=== PATIENT | male | born 1975 | race Hispanic/Latino ===

== ENCOUNTER 2018-02-09 13:12 | Inpatient (IN) | payer OTHER, SELFPAY ==
[~2018-02-09 13:12] MED LIST: Dexamethasone 20 MG/5 ML VIAL ONE; Glycopyrrolate 0.2 MG/ML 5 ML SYRINGE ONE; Lidocaine 1% PF 5 ML VIAL ONE; Ondansetron HCl/PF 4 MG/2 ML Vial ONE; PROPOFOL 200 MG/20 ML VIAL ONE
--- NOTE | 2018-02-09 14:29 | RAD ---
RIGHT HAND 3 VIEWS: HISTORY: Hand injury. COMPARISON: None. FINDINGS: There is a tiny fracture of the thumb metacarpal with punctate radiopaque debris. There is a subsegm ental-type fracture. IMPRESSION: Mildly comminuted likely extraarticular fracture of the thumb metacarpal diaphysis. POS: [facility]
[2018-02-09 15:11] LABS: #Basophils 0.1 thou/uL (0.0-0.2); #Eosinphils 0.2 thou/uL (0.0-0.7); #Lymphocytes 1.4 thou/uL (1.20-3.40); #Monocytes 0.6 thou/uL (0.11-0.59); #Neutrophils 8.4 thou/uL (1.40-6.50); %Basophils 0.6 % (0.0-1.0); %Eosinophils 1.4 % (0.0-10.0); %Monocytes 5.8 % (0.0-10.0); %Neutrophils 79.2 % (42.0-75.0); Hemoglobin 15.2 g/dL (14.0-18.0); Mean Corpuscular HGB CONC 34.5 g/dL (32.0-36.0); Mean Platelet Volume 8.9 fL (7.4-10.4); Platelet Count 160 thou/uL (130-400); RBC Distribution Width 11.7 % (11.5-14.5); Red Blood Cell (RBC) Count 4.91 mill/uL (4.70-6.10); White Blood Cell (WBC) Count 10.6 thou/uL (4.8-10.8)
[2018-02-09] MEDS ORDERED: CEFAZOLIN 1 GM VIAL ONE (15:17)
[2018-02-09] MEDS ORDERED: Penicillin G Potassium 3 MILL.UNITS in Sodium Chloride 0.9% 100 ML IVPB ONE (15:30)
[2018-02-09 15:33] LABS: ALT (SGPT) 23 U/L (8-55); AST (SGOT) 23 U/L (5-34); Albumin 4.6 g/dL (3.5-5.0); Alkaline Phosphatase 118 U/L (40-150); Anion Gap 12 mmol/L (10-20); BUN (Urea Nitrogen) 15 mg/dL (8.9-20.6); Bilirubin, Total 0.6 mg/dL (0.2-1.2); Calc. Creatinine Clearance 0 mL/min (70-130); Calcium 9.6 mg/dL (7.8-10.44); Carbon Dioxide 25 mmol/L (22-29); Chloride 108 mmol/L (98-107); Estimated GFR-MDRD Greater than 90; Globulin 3.3 g/dL (2.4-3.5); Glucose 102 mg/dL (70-105); Potassium 4.1 mmol/L (3.5-5.1); Protein, Total 7.9 g/dL (6.0-8.3); Sodium 141 mmol/L (136-145)
[2018-02-09] MEDS ORDERED: Fentanyl 250 MCG/5 ML VIAL ONE (17:22)
[2018-02-09] MEDS ORDERED: Midazolam HCl 2 mg/2 ml Vial ONE (17:22)
[2018-02-09] MEDS ORDERED: Bupivacaine PF 0.5% 30 ML VIAL ONE (17:39)
[2018-02-09] MEDS ORDERED: Lidocaine 2% 10 ML INJ ONE (17:39)
[2018-02-09] MEDS ORDERED: Hetastarch 6% 500 ML 0 ML ONE (17:39)
[2018-02-09] MEDS ORDERED: Betamet Acet/Betamet Na Ph 30 MG/5 ML VIAL ONE (17:39)
[2018-02-09] MEDS ORDERED: Bacitracin Zinc Ointment 30 gm TUBE ONE ×3 (17:39→21:59)
[2018-02-09] MEDS ORDERED: Sodium Chloride 0.9% 30 ML ONE (17:40)
[2018-02-09] MEDS ORDERED: Promethazine HCl 25 MG/ML VIAL IM PRN ×2 (21:16→21:33)
[2018-02-09] MEDS ORDERED: Promethazine HCl 25 MG/ML VIAL SLOW IVP PRN (21:16)
[2018-02-09] MEDS ORDERED: Ondansetron HCl/PF 4 MG/2 ML Vial IVP PRN (21:16)
[2018-02-09] MEDS ORDERED: Acetaminophen 325 MG TAB PO PRN (21:33)
[2018-02-09] MEDS ORDERED: traMADol HCl 50 MG TAB PO PRN (21:33)
[2018-02-09] MEDS ORDERED: Ondansetron HCl/PF 4 MG/2 ML Vial IV PRN (21:33)
[2018-02-09] MEDS ORDERED: Morphine 4 MG/ML VIAL SLOW IVP PRN (21:33)
[2018-02-09] MEDS ORDERED: HYDROcodone/Acetaminophen 5/325 mg Tablet PO PRN (21:33)
[2018-02-09] MEDS ORDERED: Meperidine HCl/PF 25 MG/ML VIAL IM PRN (21:38)
[2018-02-09] MEDS ORDERED: Communication Order-Pharmacy FS SCH (21:45)
[2018-02-09] MEDS ORDERED: TETANUS AND DIPHTHERIA TOX/PF 0.5 ML DISP.SYRIN IM SCH (21:45)
--- NOTE | 2018-02-09 22:44 | RAD ---
INTRAOPERATIVE FLUOROSCOPY: HISTORY: Right thumb ORIF. FINDINGS: Four fluoroscopic images demonstrate internal fixation screws projecting over the first metacarpal. Alignment appears to be near anatomic. EXPOSURE: 68.8 seconds 1.46 mGy IMPRESSION: Fluoroscopy as above. POS: [facility]
[2018-02-09] MEDS ORDERED: Adacel (T-DAP) 0.5 ML VIAL IM ONE (23:00)
[2018-02-09] MEDS: Ketorolac Tromethamine 30 MG/ML VIAL IVP SCH (23:16)
[2018-02-09 23:42] VITALS: BMI 28.7
[2018-02-10] MEDS ORDERED: Vancomycin HCl 1 GM in Premix Bag 1 BAG IVPB SCH (00:01)
[2018-02-10] MEDS: Vancomycin HCl 1.25 GM in Sodium Chloride 0.9% 250 ML 250 ML IVPB SCH ×2 (00:52→13:50)
[2018-02-10] MEDS: Ketorolac Tromethamine 30 MG/ML VIAL IVP SCH ×3 (05:34→18:51)
[2018-02-10] MEDS: Aspirin 81 mg Enteric Coated Tablet PO SCH ×2 (09:09→21:16)
[2018-02-10 21:06] LABS: #Eosinphils 0.2 thou/uL (0.0-0.7); #Lymphocytes 2.7 thou/uL (1.20-3.40); #Monocytes 0.8 thou/uL (0.11-0.59); #Neutrophils 5.8 thou/uL (1.40-6.50); %Basophils 0.4 % (0.0-1.0); %Eosinophils 1.6 % (0.0-10.0); %Lymphocytes 28.6 % (21.0-51.0); %Monocytes 8.7 % (0.0-10.0); %Neutrophils 60.7 % (42.0-75.0); Hemoglobin 12.5 g/dL (14.0-18.0); Mean Corpuscular HGB CONC 34.6 g/dL (32.0-36.0); Mean Corpuscular Hemoglobin 31.7 pg (27.0-31.0); Mean Corpuscular Volume 91.7 fL (78.0-98.0); Mean Platelet Volume 9.1 fL (7.4-10.4); Platelet Count 133 thou/uL (130-400); RBC Distribution Width 11.9 % (11.5-14.5); Red Blood Cell (RBC) Count 3.93 mill/uL (4.70-6.10); White Blood Cell (WBC) Count 9.5 thou/uL (4.8-10.8)
--- NOTE | 2018-02-10 21:19 | RAD ---
CHEST TWO VIEWS: 02/10/18 HISTORY: Pain. COMPARISON: None. FINDINGS: Normal cardiac silhouette. Pulmonary vessels and pulmonary hilum are normal. Costophrenic angles are clear. There is a wedge shaped opacity obscuring the right heart border, likely due to a middle lobe infiltrate. No pneumothorax or osseous abnormalities. IMPRESSION: Middle lobe infiltrate. Continued surveillance to ensure resolution is recommended. POS: [facility]
--- NOTE | 2018-02-10 21:20 | RAD ---
THORACIC SPINE THREE VIEWS: 02/10/18 HISTORY: Pain. COMPARISON: None. FINDINGS: Limited evaluation of the upper thoracic spine on the lateral projection. Based on the images provide d, thoracic spine vertebral body height is maintained. No fracture or malalignment. IMPRESSION: Unremarkable three views thoracic spine. POS: [facility]
--- NOTE | 2018-02-10 21:21 | RAD ---
LUMBAR SPINE THREE VIEWS: 02/10/18 HISTORY: Pain. COMPARISON: None. FINDINGS: Five lumbar type vertebral bodies. Vertebral body height is maintained. No fracture. Disc spaces heig hts are preserved. No spondylolisthesis or spondylolysis. IMPRESSION: Unremarkable lumbar spine radiograph series. POS: [facility]
[2018-02-11] MEDS: Vancomycin HCl 1.25 GM in Sodium Chloride 0.9% 250 ML 250 ML IVPB SCH ×2 (00:12→12:13)
[2018-02-11] MEDS ORDERED: Clopidogrel Bisulfate 75 MG TAB ONE (00:31)
[2018-02-11] MEDS: Ketorolac Tromethamine 30 MG/ML VIAL IVP SCH ×4 (00:48→16:26)
--- NOTE | 2018-02-11 08:54 | OP ---
DATE OF PROCEDURE: 02/09/2018 POSTOPERATIVE DIAGNOSES: 1. Right thumb grade 3 open fracture metacarpal. 2. Extensor pollicis longus laceration. 3. Pollicis brevus laceration. 4. An 8.0 cm wound. 5. At the right small finger 2.0 cm wound. FINDINGS/POSTOPERATIVE DIAGNOSES: 1. Right thumb grade 3 open fracture metacarpal. 2. Extensor pollicis longus laceration. 3. Pollicis brevus laceration. 4. An 8.0 cm wound. 5. At the right small finger 2.0 cm wound. 6. Superficial radial nerve, primary three branches intact over the thumb with marked soft tissue da mage, bone loss of approximately 1-2 mm where the saw made its primary contact and extensor pollicis brevis and longus laceration in zone 2, , no evidence of gross bony contamination, only minimal soft tissue contamination at the thumb and the small finger. 7. At the right small finger, the ulnar laceration had an intact ulnar digital nerve and excellent c irculation. PROCEDURE PERFORMED: Right small finger: 1. Debridement of 3 cm wound, intermediate depth. 2. Ulnar nerve neuroplasty under magnification. 3. Closure 3.0 cm wound. Right thumb: 1. Superficial radial nerve neuroplasty under magnification. 2. Extensor pollicis brevis repair. 3. Extensor pollicis longus repair. 4. Wound debridement down to and including the bone. 5. Debridement of material associated with open fracture, right thumb metacarpal. 6. Open reduction internal fixation of thumb metacarpal fracture. 7. Wound closure 8 cm complex. 10. Application of the thumb spica splint. 11. C-arm supervision, less than 1 hour. ESTIMATED BLOOD LOSS: 20 mL TOURNIQUET TIME: 6 minutes. INDICATION: The patient with a saw to the wound in work environment working with wood, not metal, an d he was brought to the operating room within 8 hours for procedure. ANESTHESIA: General LMA technique augmented by 30 mL 0.5% Marcaine, 20 given in the thumb 10 to smal l finger, metacarpophalangeal block level. DESCRIPTION OF PROCEDURE: After successful general LMA technique, the limb was prepped and draped. Timeout was performed appropriately. We then brought him to the field, identified the fracture patte rn as seen and it was a L-shaped fracture with three major fragments and there was some bone loss in the center of each fracture making anatomic fixation difficult, so we exsanguinated the limb, placed the tourniquet up to 250 mmHg pressure and began by exploring the end debridement of the wound at the small finger where we found that the ulnar digital nerve to be intact with only the ulnar laceration . We also then extended the incision at the dorsal thumb, identified the extensor tendon laceration which was complete for both the brevis and the longus just proximal to the MP joint and there was ret raction of the pollicis longus almost into the retinaculum of the dorsal wrist. We then performed superficial radial neuroplasty therefore felt all three major branches to be intact without laceration throughout the field of injury. We then also opened the fracture, debrided with a combination of curette tenotomy scissors, Adson's rongeur. We also debrided all the material assoc iated with the fracture to include the soft tissue, but there was only one or two areas of small amou nt of metal shavings consistent with a metal saw aving made contact. Again, there were some bone fra gments that needed to be debrided with a rongeur and this was done. Secondly, besides instruments an d technique listed above which was excisional, we also irrigated the wound with 6 liters normal salin e and Pulsavac pressure. Once we have finished the debridement, we could see that the fracture was not grossly contaminated. The wound was made clean, there was a grade 2 injury, we decided that the fixation would be indicated , so we reduced the fracture as anatomically as possible to save the bone loss, placed 6 lag screw wa s then placed from the radial side. All the other way protected all superficial radial nerve branche s and digital nerve branches. The lag screw fixation was excellent with excellent stability clinical ly and radiographically and the fracture was nearly anatomic except for the bone loss in the mid port ion of the fracture line. Tourniquet was admitted with a C-arm was then released after this time. We were able to then complet e further debridement of any small amount of soft tissue staining, debrided the wound edges and then prepared for tendon repair. First repair is of pollicis brevis using multiple [id number] suture with a 4-0 Prolene. Then, we repaired extensor pollicis longus, because we retracted it so far, as it was a flexor tendon doing at back wall, first repair underneath bringing it appropriately position ed under the retinaculum, then while the 6-0 Prolene was then placed, but not complete. We then plac ed two 4-0 Supramid looped suture using the technique of Everton Irving for 6-strand repair. We finished a nd oversew. Once this was completed, there was appropriate tension of the thumb in mild hyperextensi on at the IP joint and -10 extension to EPB repair at the MP joint. We debrided some more of the wound itself, then rechecked the superficial radial nerve to make sure we cause no damage and we did not. Final samples were taken. We then released the tourniquet. We c losed the small finger wound with interrupted 5-0 nylon in a simple pattern, closed the thumb wound w ith interrupted 4-0 nylon in a multilayer closure technique with some mattress and some simple suture . Bulky dressing was then applied and the patient left the operating room with a short arm splint an d the wound closed primarily.
[2018-02-11] MEDS: Aspirin 81 mg Enteric Coated Tablet PO SCH (09:48)
[2018-02-11 12:02] LABS: Vancomycin, Trough 11.3 ug/mL
[2018-02-11 15:53] VITALS: BP 143/72; TEMP 98.6
[2018-02-11] MEDS ORDERED: Azithromycin 250 MG TAB PO SCH (16:00)
--- NOTE | 2018-02-11 16:21 | CON ---
DATE OF CONSULTATION: 02/11/2018 PRIMARY CARE PROVIDER: Out of town, in [place]. The patient is unable to remember the name of the [facility] care provider. CHIEF COMPLAINT: Burning sensation in chest. HISTORY OF PRESENT ILLNESS: Mr. Vee is a pleasant 42-year-old gentleman who was seen at [facility] on 02/11/2018 in consultation regarding a burning sensation in the chest. He was admitted to [facility] on 02/09/2018, for a right open thumb fracture a s well as right fifth metacarpal laceration. He underwent surgery by [facility] and was ad mitted under their service. He reports that whenever vancomycin infusions are started, he has a burning sensation that starts in the peripheral vein and spreads along his arm and across his chest. He reports that it is usually se pieter and at the start coming usually 5/10, but subsequently decreases to 1 and disappears until the n ext vancomycin infusion. He also reports that there is a burning sensation across his back when this happens. He denies any cough. He denies any fevers. He denies any chills. He denies any other ki nd of chest pain. He denies any nausea, vomiting, diarrhea or abdominal pain. REVIEW OF SYSTEMS: All other systems were reviewed and found to be negative. PAST MEDICAL HISTORY: None. PAST SURGICAL HISTORY: Tonsillectomy. SOCIAL HISTORY: The patient denies tobacco use, alcohol use or recreational drug use. FAMILY HISTORY: No family history of premature coronary artery disease. ALLERGIES: No known drug allergies. CURRENT MEDICATIONS: In the hospital, he is receiving aspirin 81 mg 2 times a day, Toradol 30 mg q.6 hours, vancomycin 1.25 grams 2 times a day, acetaminophen 650 mg every 6 hours as needed, Goldonna 5/32 5 q.4 hours p.r.n., Demerol 12.5 mg intramuscularly q. 6 hours p.r.n., morphine 4 mg IV q.2 hours p.r .n., Zofran 4 mg IV q.6 hours p.r.n., promethazine 12.5 mg q.4 hours p.r.n., and Tramadol 50 mg orall y every 6 hours as needed. PHYSICAL EXAMINATION: GENERAL: Mr. Vee is awake and alert, not in acute distress. VITAL SIGNS: Blood pressure is 133/73, pulse 62, respiratory rate 16, oxygen saturations 96% on room air and he is afebrile. EYES: No scleral icterus. No conjunctival pallor. ENT: Moist mucous membranes, no oropharyngeal erythema or exudates. NECK: Supple, nontender. Trachea is midline. RESPIRATORY: Accessory muscles of breathing are not active. Chest wall movements are symmetric bila terally. LUNGS: Clear to auscultation without wheeze, rhonchi or crepitations. CARDIOVASCULAR: S1 and S2 are heard, regular. Peripheral pulses palpable. No carotid bruit. No pe ricardial rub. ABDOMEN: Soft, nontender, bowel sounds heard, no hepatomegaly, no splenomegaly. NEUROLOGIC: Cranial nerves II-XII intact. Deep tendon reflexes 2+. MUSCULOSKELETAL: Bandages over the right thumb and little finger. SKIN: No rashes or subcutaneous nodules. LYMPHATIC: No cervical lymphadenopathy. PSYCHIATRIC: Normal mood, normal affect, the patient is oriented to person, place, and time. LABORATORY DATA: Mr. Vee's labs and investigations were reviewed. He has a normal white count , normocytic anemia with hemoglobin 12.5, normal platelet count, unremarkable comprehensive metabolic profile, and vancomycin trough of 11.3. He had a chest x-ray, which has been interpreted by the rad iologist as middle lobe infiltrate. He also had thoracic and lumbar spine x-rays, which were unremar kable. ASSESSMENT AND PLAN: Mr. Vee is a pleasant 42-year-old gentleman who was seen at [facility] on 02/11/2018. His problem list includes: 1. Drug reaction: The most likely explanation for Mr. Vee's burning sensation in his arm as w ell as across his chest is a reaction to vancomycin infusion. He reports that he has noticed it happ ens every time only with the drug infusion. He denies any exertional or pleuritic component to the p ain. I note that he is scheduled to be discharged on trimethoprim/sulfamethoxazole, and I agree with this. 2. Pneumonia: Suspected, based on chest x-ray. However, Mr. Vee does not have any fever, coug h or leukocytosis. To be on the safe side, he will be treated with a course of [id number]-[id number] and advised to follow up with his primary care provider in [place] so that repeat imaging can be obtained to ensure r esolution. LEVEL OF RISK: Moderate. LEVEL OF COMPLEXITY: Moderate.
--- NOTE | 2018-02-12 00:23 | DIS ---
DATE OF ADMISSION: 02/09/2018 DATE OF DISCHARGE: 02/11/2018 ADMISSION DIAGNOSIS: Open thumb and small finger laceration with a grade 2 open fracture from ____ a t the thumb and with wound involving tendon as well as soft tissue. DISCHARGE DIAGNOSES: 1. Open thumb and small finger laceration with a grade 2 open fracture from ____ at the thumb and wi th wound involving tendon as well as soft tissue. 2. Small infiltrate, subclinical at the left middle lobe of the lungs. HOSPITAL COURSE: The patient was admitted because of traumatic injury, where he had a 4-cm right jung mb laceration and a 2-cm ulnar small finger laceration. These were debrided, underwent repair of the small finger with only superficial wound, because everything else was intact and despite a neuroplas ty visualization. At the thumb, he underwent debridement of wound, debridement of material associate d with open fracture of the thumb, metacarpal, and then periosteum repair, extensor pollicis brevis a nd extensor pollicis longus repair, wound closure in multiple layers, and C-arm visualization. For the first 36 hours of surgery, he was given vancomycin and again complained of some central chest thoracic pain associated with administration. We then performed standard workup to include further x-rays, laboratory work, thoracic spine, and lumbar spine x-ray showed no abnormality of bone and no acute evidence of infection, but the patient did have a patchy infiltrate in the left middle lobe. Hospitalist was consulted, evaluated the patient and felt he needed a short course of antibiotics on top of the antibiotics I was given, he was cleared for discharge. At this point, him not to worry. DIET: Regular. FOLLOWUP: With us in one week after discharge.
[2018-02-12] MEDS ORDERED: Azithromycin 250 MG TAB PO SCH (09:00)
== END 2018-02-11 18:00 | disposition home or self-care (01) | DRG 513 ==
LOC: ERS 13:12 → SDC 18:22 → SURG B 22:22
PROVIDERS: ADMIT Orthopaedic Surgery Hand Surgery; ATTEND Orthopaedic Surgery Hand Surgery
PROC: 0PSR04Z Reposition Right Thumb Phalanx with Internal Fixation Device, Open Approach (ICD-10-PCS; principal; 2018-02-09)
PROC: 01S60ZZ Reposition Radial Nerve, Open Approach (ICD-10-PCS; 2018-02-09)
PROC: 0LQ70ZZ Repair Right Hand Tendon, Open Approach (ICD-10-PCS; 2018-02-09)
DX: S62.306B Unspecified fracture of fifth metacarpal bone, right hand, initial encounter for open fracture (principal); S66.326A Laceration of extensor muscle, fascia and tendon of right little finger at wrist and hand level, initial encounter; S66.221A Laceration of extensor muscle, fascia and tendon of right thumb at wrist and hand level, initial encounter; S61.021A Laceration with foreign body of right thumb without damage to nail, initial encounter; W31.2XXA Contact with powered woodworking and forming machines, initial encounter; Y93.89 Activity, other specified; Y92.69 Other specified industrial and construction area as the place of occurrence of the external cause; Y99.0 Civilian activity done for income or pay; R91.8 Other nonspecific abnormal finding of lung field; R20.8 Other disturbances of skin sensation; T36.8X5A Adverse effect of other systemic antibiotics, initial encounter; Y92.239 Unspecified place in hospital as the place of occurrence of the external cause
CPT/HCPCS: 36415; 71046; 72072; 72100; 76001; 80053; 80202; 85025; 93005; 96365; 96367; A4216; C1713; J0690; J0702; J1100; J1885; J2001; J2250; J2405; J2540; J2704; J3010; J3370; J3490; J7050; S0020